=== PATIENT | male | born 1995 | race Caucasian/White ===

== ENCOUNTER 2022-11-07 10:07 | Outpatient (CLI) | payer BC, SELFPAY | END 2022-11-07 10:08 | disposition home or self-care (01) | PROVIDERS: PCP Emergency Medicine; Visit Provider Emergency Medicine | DX: I10 Essential (primary) hypertension (principal) | CPT/HCPCS: 80048; 84443 ==

== ENCOUNTER 2022-12-04 11:27 | Outpatient (CLI) | payer BC, SELFPAY | END 2022-12-04 11:28 | disposition home or self-care (01) | PROVIDERS: PCP Emergency Medicine; Visit Provider Emergency Medicine | DX: I10 Essential (primary) hypertension (principal); Z13.6 Encounter for screening for cardiovascular disorders | CPT/HCPCS: 80048; 80061 ==